=== PATIENT | male | born 1980 | race African-American/Black ===

== ENCOUNTER 2017-10-15 14:55 | Emergency (ER) | payer OTHER ==
--- NOTE | 2017-10-15 15:37 | ER Document Report ---
ED Medical Screen (RME) - General Chief Complaint: Pain Stated Complaint: ABDOMINAL,NECK,BACK,SHOULDER PAIN Time Seen by Provider: 10/15/17 15:31 TRAVEL OUTSIDE OF THE [place] IN LAST 30 DAYS: No - HPI Notes: 10/15/17 15:35 Patient coming in for evaluation due to ongoing pain after being a fall apparently down 2 flights of stairs was in [facility] discharged a week ago patient states pain continues and medication he is currently on is not taking care of his pain. Patient states he has contacted his follow-up physicians and has an appointment later on next week but states that he was having hematuria this has reoccurred and also has pain in the left hand now which was not evaluated while he was at [facility]. - Related Data Allergies/Adverse Reactions: haloperidol [From Haldol] Allergy (Verified 10/15/17 14:56) haloperidol lactate [From Haldol] Allergy (Verified 10/15/17 14:56) ibuprofen Allergy (Verified 10/15/17 14:56) Past Medical History - Past Medical History Cardiac Medical History: Reports: Hx Hypertension Endocrine Medical History: Reports: Hx Hypothyroidism GI Medical History: Denies: Hx Crohn's Disease - denies, Hx Diverticulitis - denies, Hx Gastroesophageal Reflux Disease - denies, Hx Ulcer - denies Musculoskeltal Medical History: Reports Hx Arthritis, Reports Hx Musculoskeletal Deformity, Reports Hx Musculoskeletal Trauma Psychiatric Medical History: Reports: Hx Schizophrenia Traumatic Medical History: Reports: Hx Fractures - shoulder Past Surgical History: Reports: Hx Orthopedic Surgery - shoulder - Immunizations Immunizations up to date: Yes Hx Diphtheria, Pertussis, Tetanus Vaccination: Yes Review of Systems - Review of Systems Constitutional: Other - Diffuse pain Physical Exam - Vital signs Vitals: Temp Pulse Resp BP Pulse Ox 99.8 F 125 H 20 168/103 H 96 10/15/17 15:05 10/15/17 15:05 10/15/17 15:05 10/15/17 15:05 10/15/17 15:05 - General General appearance: Appears well In distress: None Notes: Patient in no obvious distress Course - Re-evaluation Re-evalutation: 10/15/17 15:36 Patient with a cast on the left hand neck brace knee immobilizer however is unable to give specific injuries requested [facility] records be obtained requesting adjustment of pain medications explained to patient this will have to come from his follow-up physician 10/15/17 15:37 - Vital Signs Vital signs: Temp Pulse Resp BP Pulse Ox 99.8 F 125 H 20 168/103 H 96 10/15/17 15:05 10/15/17 15:05 10/15/17 15:05 10/15/17 15:05 10/15/17 15:05
[2017-10-15 16:16] LABS: ABSOLUTE BASOPHILS # (AUTO) 0.1 10^3/uL (0.0-0.2); ABSOLUTE LYMPHOCYTES (AUTO) 1.6 10^3/uL (0.5-4.7); BASOPHILS % (AUTO) 0.8 % (0-2); HEMATOCRIT 36.1 % (37.9-51.0); HEMOGLOBIN 12.2 g/dL (13.5-17.0); MEAN CORPUSCULAR HEMOGLOBIN 28.8 pg (27.0-33.4); MEAN CORPUSCULAR HGB CONC 33.9 g/dL (32.0-36.0); MEAN CORPUSCULAR VOLUME 85 fl (80-97); PLATELET COUNT 464 10^3/uL (150-450); RED BLOOD COUNT 4.26 10^6/uL (4.35-5.55); RED CELL DISTRIBUTION WIDTH 13.6 % (11.5-14.0); SEGMENTED NEUTROPHILS % (AUTO) 80.2 % (42-78); TOTAL CELLS COUNTED % (AUTO) 100 %; WHITE BLOOD COUNT 13.7 10^3/uL (4.0-10.5)
--- NOTE | 2017-10-15 16:19 | RADIOLOGY REPORT (SQ) ---
EXAM DESCRIPTION: HAND RIGHT 3 VIEWS COMPLETED DATE/TIME: 10/15/2017 3:58 pm REASON FOR STUDY: pain COMPARISON: None. EXAM PARAMETERS: NUMBER OF VIEWS: Three views. TECHNIQUE: AP, lateral and oblique radiographic images acquired of the right hand. LIMITATIONS: None. FINDINGS: MINERALIZATION: Normal. BONES: No acute fracture or dislocation. No worrisome bone lesions. JOINTS: No effusions. SOFT TISSUES: No soft tissue swelling. No foreign body. OTHER: No other significant finding. IMPRESSION: NEGATIVE STUDY OF THE RIGHT HAND. NO RADIOGRAPHIC EVIDENCE OF ACUTE INJURY. TECHNICAL DOCUMENTATION: JOB ID: [id number] [employer]- All Rights Reserved Reading location - IP/workstation name: [email or web address]
[2017-10-15] MEDS ORDERED: HYDROCODONE/ACETAMINOPHEN 5-325 MG TABLET PO ONE (16:28)
[2017-10-15 16:38] LABS: ANION GAP 13 (5-19); BLOOD UREA NITROGEN 29 mg/dL (7-20); CALCIUM 9.7 mg/dL (8.4-10.2); CARBON DIOXIDE 30 mmol/L (22-30); CHLORIDE 92 mmol/L (98-107); GLUCOSE 145 mg/dL (75-110); SODIUM 134.9 mmol/L (137-145)
[2017-10-15 16:45] LABS: APPEARANCE,URINE CLEAR; BILIRUBIN,URINE NEGATIVE (NEGATIVE); COLOR,URINE YELLOW; GLUCOSE, URINE NEGATIVE (NEGATIVE); KETONES,URINE NEGATIVE (NEGATIVE); LEUKOCYTE ESTERASE,URINE NEGATIVE (NEGATIVE); NITRITE,URINE NEGATIVE (NEGATIVE); PROTEIN,URINE NEGATIVE (NEGATIVE); URINE SPECIFIC GRAVITY 1.024; UROBILINOGEN,URINE NEGATIVE mg/dL (<2.0)
--- NOTE | 2017-10-15 17:10 | ER Document Report ---
ED General Pain - General Chief Complaint: Pain Stated Complaint: ABDOMINAL,NECK,BACK,SHOULDER PAIN Time Seen by Provider: 10/15/17 15:31 Notes: This is a 36-year-old male that fell from a scaffolding as a trauma patient. Was seen at [facility] 1 week ago. Had fracture of his left wrist, grade 4 splenic lack, liver lack as well as kidney lack. Was subsequently operated on for his wrist and was discharged on Saturday. Here complaining of pain. Not followed up with Ortho. Has not followed up with surgery. Requesting pain medication. States that he has pain in his right wrist and right knee and that he does not think anything was done to evaluate those. Requesting x-rays. Requesting pain management. TRAVEL OUTSIDE OF THE [place] IN LAST 30 DAYS: No - HPI Onset: Last week - Related Data Allergies/Adverse Reactions: haloperidol [From Haldol] Allergy (Verified 10/15/17 14:56) haloperidol lactate [From Haldol] Allergy (Verified 10/15/17 14:56) ibuprofen Allergy (Verified 10/15/17 14:56) Past Medical History - General Information source: Patient - Social History Smoking Status: Never Smoker Chew tobacco use (# tins/day): No Frequency of alcohol use: None Drug Abuse: None Lives with: Family Family History: Arthritis, DM - mother, Hyperlipidemia, Hypertension, Malignancy - father with colon cancer, Thyroid Disfunction Patient has suicidal ideation: No Patient has homicidal ideation: No - Past Medical History Cardiac Medical History: Reports: Hx Hypertension Endocrine Medical History: Reports: Hx Hypothyroidism Renal/ Medical History: Denies: Hx Peritoneal Dialysis GI Medical History: Denies: Hx Crohn's Disease - denies, Hx Diverticulitis - denies, Hx Gastroesophageal Reflux Disease - denies, Hx Ulcer - denies Musculoskeltal Medical History: Reports Hx Arthritis, Reports Hx Musculoskeletal Deformity, Reports Hx Musculoskeletal Trauma Psychiatric Medical History: Reports: Hx Schizophrenia Traumatic Medical History: Reports: Hx Fractures - shoulder Past Surgical History: Reports: Hx Orthopedic Surgery - shoulder - Immunizations Immunizations up to date: Yes Hx Diphtheria, Pertussis, Tetanus Vaccination: Yes Review of Systems - Review of Systems Constitutional: No symptoms reported EENT: No symptoms reported Cardiovascular: No symptoms reported Respiratory: No symptoms reported Gastrointestinal: No symptoms reported Genitourinary: No symptoms reported Male Genitourinary: No symptoms reported Musculoskeletal: See HPI, Joint pain, Muscle pain, Other - Knee pain, wrist pain Skin: No symptoms reported Hematologic/Lymphatic: No symptoms reported Neurological/Psychological: No symptoms reported Physical Exam - Vital signs Vitals: Temp Pulse Resp BP Pulse Ox 99.8 F 125 H 20 168/103 H 96 10/15/17 15:05 10/15/17 15:05 10/15/17 15:05 10/15/17 15:05 10/15/17 15:05 Interpretation: Normal - General General appearance: Appears well, Alert - HEENT Head: Normocephalic, Atraumatic Eyes: Normal Pupils: PERRL - Respiratory Respiratory status: No respiratory distress Chest status: Nontender Breath sounds: Normal Chest palpation: Normal - Cardiovascular Rhythm: Regular Heart sounds: Normal auscultation Murmur: No - Abdominal Inspection: Normal Distension: No distension Bowel sounds: Normal Tenderness: Nontender Organomegaly: No organomegaly - Back Back: Normal, Nontender - Extremities General upper extremity: Other - Patient has dressing and application to the left upper extremity at the wrist. Patient is neurovascularly intact. Good capillary refill to the fingers of the left hand. Patient has some mild tenderness to palpation of the carpal bones on the right hand. No significant deformity or palpation of the right wrist. General lower extremity: Normal inspection, Nontender, Normal color, Normal ROM , Normal temperature, Normal weight bearing. No: Aly's sign Shoulder: Normal Hip: Normal Knee: Tender, Other - Tenderness palpation right knee. - Neurological Neuro grossly intact: Yes Cognition: Normal Orientation: AAOx4 Glenna Coma Scale Eye Opening: Spontaneous Glenna Coma Scale Verbal: Oriented Glenna Coma Scale Motor: Obeys Commands [place] Coma Scale Total: 15 Speech: Normal Motor strength normal: LUE, RUE, LLE, RLE Sensory: Normal - Psychological Associated symptoms: Normal affect, Normal mood - Skin Skin Temperature: Warm Skin Moisture: Dry Skin Color: Normal Course - Re-evaluation Re-evalutation: 10/15/17 17:44 X-rays are unremarkable. Spoke with the trauma surgeon at [facility]. I believe patient is on adequate pain medication at this time. No acute issues. Patient definitely has multiple trauma related injuries including a grade 4 liver laceration, right renal laceration, scaphoid fracture perilunate dorsal dislocation and dorsal dislocation of the left index finger. Nothing appears acute at this time. Patient requesting pain management. Patient has oxycodone, Robaxin, gabapentin. I feel that patient is stable to be seen in outpatient clinic. Spoke with the trauma surgeon as well and they have advised to have him follow-up with the trauma clinic tomorrow at [phone] 10/15/17 18:51 Hand X-Ray 10/15/17 15:35 IMPRESSION: NEGATIVE STUDY OF THE RIGHT HAND. NO RADIOGRAPHIC EVIDENCE OF ACUTE INJURY. Knee X-Ray 10/15/17 17:05 IMPRESSION: NEGATIVE STUDY OF THE RIGHT KNEE. NO RADIOGRAPHIC EVIDENCE OF ACUTE INJURY. - Vital Signs Vital signs: Temp Pulse Resp BP Pulse Ox 99.8 F 125 H 20 168/103 H 96 10/15/17 15:05 10/15/17 15:05 10/15/17 15:05 10/15/17 15:05 10/15/17 15:05 - Laboratory Result Diagrams: 10/15/17 16:00 10/15/17 16:00 Laboratory results interpreted by me: 10/15/17 10/15/17 10/15/17 16:00 16:00 16:10 WBC 13.7 H RBC 4.26 L Hgb 12.2 L Hct 36.1 L Plt Count 464 H Seg Neutrophils % 80.2 H Lymphocytes % 12.0 L Absolute Neutrophils 11.0 H Sodium 134.9 L Chloride 92 L BUN 29 H Glucose 145 H Urine Ascorbic Acid 40 H Discharge - Discharge Clinical Impression: Postoperative pain of extremity Condition: Good Disposition: HOME, SELF-CARE Instructions: Pain Management Additional Instructions: Please go to the trauma clinic at [facility] surgery clinic at [address] tomorrow morning at 9 AM. Their phone number is [phone]. They will be better able to manage your pain after your trauma. Referrals: [facility] [Provider Group] - Follow up tomorrow
[2017-10-15] MEDS ORDERED: MORPHINE SULFATE 10 MG/ML INJ IM PRN (17:48)
--- NOTE | 2017-10-15 17:50 | RADIOLOGY REPORT (SQ) ---
EXAM DESCRIPTION: KNEE RIGHT 2 VIEWS COMPLETED DATE/TIME: 10/15/2017 5:18 pm REASON FOR STUDY: pain COMPARISON: None. NUMBER OF VIEWS: Two views. TECHNIQUE: AP and lateral radiographic images acquired of the right knee. LIMITATIONS: None. FINDINGS: MINERALIZATION: Normal. BONES: No acute fracture or dislocation. No worrisome bone lesions. JOINT: No effusion. SOFT TISSUES: No soft tissue swelling. No radio-opaque foreign body. OTHER: Minimal patellar spurring is identified. IMPRESSION: NEGATIVE STUDY OF THE RIGHT KNEE. NO RADIOGRAPHIC EVIDENCE OF ACUTE INJURY. TECHNICAL DOCUMENTATION: JOB ID: [id number] [email or web address]- All Rights Reserved Reading location - IP/workstation name: [email or web address]
[2017-10-15 19:08] VITALS: BP 148/89
== END 2017-10-15 18:20 | disposition home or self-care (01) ==
LOC: ER 14:55
DX: G89.18 Other acute postprocedural pain (principal); M25.531 Pain in right wrist; M25.561 Pain in right knee; I10 Essential (primary) hypertension; E03.9 Hypothyroidism, unspecified; Z88.6 Allergy status to analgesic agent
CPT/HCPCS: 99284; 96372; 36415; 85025; 80048; 81001; 73130; 73560; J2270

== ENCOUNTER 2017-12-13 13:56 | Emergency (ER) | payer SELFPAY ==
[2017-12-13 14:06] VITALS: BP 148/95
[2017-12-13] MEDS ORDERED: ACETAMINOPHEN 325 MG TABLET PO ONE (15:39)
--- NOTE | 2017-12-13 15:47 | ER Document Report ---
ED Hand/Wrist Injury - General Chief Complaint: Wrist Injury Stated Complaint: HAND PAIN Time Seen by Provider: 12/13/17 15:38 Mode of Arrival: Ambulatory Information source: Patient Notes: 37-year-old male presents to ED for complaint to his left hand that he states he broke and had surgery on on October 07 at [facility]. TRAVEL OUTSIDE OF THE [place] IN LAST 30 DAYS: No - HPI Injury to: Hand - Left, Wrist - Left Onset: Last week Where: Work Timing: Still present Quality of pain: Sharp, Throbbing Context: Other - Pain to surgical site - Related Data Allergies/Adverse Reactions: haloperidol [From Haldol] Allergy (Verified 10/15/17 14:56) haloperidol lactate [From Haldol] Allergy (Verified 10/15/17 14:56) ibuprofen Allergy (Verified 10/15/17 14:56) Past Medical History - General Information source: Patient - Social History Smoking Status: Former Smoker Chew tobacco use (# tins/day): No Frequency of alcohol use: None Drug Abuse: None Lives with: Family Family History: Arthritis, DM - mother, Hyperlipidemia, Hypertension, Malignancy - father with colon cancer, Thyroid Disfunction Patient has suicidal ideation: No Patient has homicidal ideation: No - Past Medical History Cardiac Medical History: Reports: Hx Hypertension Pulmonary Medical History: Reports: None Neurological Medical History: Reports: None Endocrine Medical History: Reports: Hx Hypothyroidism Renal/ Medical History: Reports: None Malignancy Medical History: Reports None GI Medical History: Reports: Hx Ulcer Musculoskeletal Medical History: Reports Hx Arthritis, Reports Hx Musculoskeletal Deformity, Reports Hx Musculoskeletal Trauma Psychiatric Medical History: Reports: Hx Schizophrenia Traumatic Medical History: Reports: Hx Fractures - shoulder pain Past Surgical History: Reports: Hx Orthopedic Surgery - shoulder - Immunizations Immunizations up to date: Yes Hx Diphtheria, Pertussis, Tetanus Vaccination: Yes Review of Systems - Review of Systems Constitutional: No symptoms reported EENT: No symptoms reported Cardiovascular: No symptoms reported Respiratory: No symptoms reported Gastrointestinal: No symptoms reported Genitourinary: No symptoms reported Male Genitourinary: No symptoms reported Musculoskeletal: Other - Left hand and wrist pain with a cast on it Skin: No symptoms reported Hematologic/Lymphatic: No symptoms reported Neurological/Psychological: No symptoms reported Physical Exam - Vital signs Vitals: Temp Pulse Resp BP Pulse Ox 98.9 F 76 18 148/95 H 99 12/13/17 14:05 12/13/17 14:05 12/13/17 14:05 12/13/17 14:05 12/13/17 14:05 Interpretation: Normal - General General appearance: Appears well, Alert - HEENT Head: Normocephalic, Atraumatic Eyes: Normal Pupils: PERRL - Respiratory Respiratory status: No respiratory distress Chest status: Nontender Breath sounds: Normal Chest palpation: Normal - Cardiovascular Rhythm: Regular Heart sounds: Normal auscultation Murmur: No - Abdominal Inspection: Normal Distension: No distension Bowel sounds: Normal Tenderness: Nontender Organomegaly: No organomegaly - Back Back: Normal, Nontender - Extremities General upper extremity: Normal color, Normal temperature General lower extremity: Normal inspection, Nontender, Normal color, Normal ROM , Normal temperature, Normal weight bearing. No: Aly's sign Wrist: Other - Cast intact to left hand and wrist. He states he had surgery on this hand and wrist last week at [place] and he thinks this pins are out of place any has excruciating pain and needs new surgery on his hand and wrist - Neurological Neuro grossly intact: Yes Cognition: Normal Orientation: AAOx4 Glenna Coma Scale Eye Opening: Spontaneous Fowler Coma Scale Verbal: Oriented Glenna Coma Scale Motor: Obeys Commands Fowler Coma Scale Total: 15 Speech: Normal Motor strength normal: LUE, RUE, LLE, RLE Sensory: Normal - Psychological Associated symptoms: Normal affect, Normal mood - Skin Skin Temperature: Warm Skin Moisture: Dry Skin Color: Normal Course - Re-evaluation Re-evalutation: 12/13/17 21:16 X-rays were discussed with patient. I was typing up his discharge instructions when the nurse came and told me that the patient had decided to get up and leave. I finished typing the discharge papers and tried to catch him but was unable to catch him to give him his discharge papers. - Vital Signs Vital signs: Temp Pulse Resp BP Pulse Ox 98.9 F 76 18 148/95 H 99 12/13/17 14:05 12/13/17 14:05 12/13/17 14:05 12/13/17 14:05 12/13/17 14:05 - Diagnostic Test Radiology reviewed: Image reviewed, Reports reviewed Discharge - Discharge Clinical Impression: left hand and wrist pain Condition: Stable Disposition: HOME, SELF-CARE Additional Instructions: You was seen for pain to your left hand and wrist. There is no acute changes to your wrist and hand the surgery does not show any problems with your pins and screws does not show any new fractures. I have given you a copy of the written reports if you are willing to wait I will get you a CD of the reports to take to [facility]. ICE & ELEVATION: Apply ice packs frequently against the painful area. Many different schedules are recommended, such as "20 minutes on, 20 minutes off" or "one hour ice, two hours rest." If you need to work, you may need to go longer between ice treatments. You should plan to have the area ice packed AT LEAST one- fourth of the time. The ice should be applied over the wrap, tape, or splint, or over a layer of cloth -- not directly against the skin. Some ice bags have a built-in cloth and can be put directly on the skin. Your injured part should be elevated as much as possible over the next 48 hours. Try to keep the injury above the level of the heart. Avoid use of the injured area. Elevation and rest will decrease the swelling. USE OF [id number]-KTG-YIFFLEB IBUPROFEN: Ibuprofen (Advil, Nuprin, Medipren, Motrin IB) is a medication for fever and pain control. In addition, it has anti- inflammatory effects which may be beneficial, especially in the treatment of injuries. It's best to take ibuprofen with food. Persons with ulcer disease or allergy to aspirin should notify their physician of this before taking ibuprofen. Ibuprofen can be given every four to six hours, for a total of four doses daily. Age Pain or fever dose Antiinflammatory dose 6-8 yr 200 mg (1 tab) 200 mg (1 tab) 9-11 yr 200 mg (1 tab) 200-400 mg (1-2 tab) 11-14 yr 200-400 mg (1-2 tab) 400 mg (2 tab) 15-adult 400 mg (2 tab) 600 mg (3 tab) FOLLOW-UP CARE: If you have been referred to a physician for follow-up care, call the physician s office for an appointment as you were instructed or within the next two days. If you experience worsening or a significant change in your symptoms, notify the physician immediately or return to the Emergency Department at any time for re-evaluation. Forms: Elevated Blood Pressure
--- NOTE | 2017-12-13 16:12 | RADIOLOGY REPORT (SQ) ---
EXAM DESCRIPTION: HAND LEFT 3 VIEWS COMPLETED DATE/TIME: 12/13/2017 4:01 pm REASON FOR STUDY: surgery last week [place] COMPARISON: None. EXAM PARAMETERS: NUMBER OF VIEWS: Three views. TECHNIQUE: AP, lateral and oblique radiographic images acquired of the left hand. LIMITATIONS: None. FINDINGS: MINERALIZATION: Normal. BONES: No abnormality in the hand. There is a cannulated screw in the scaphoid. 4 pins are present in the wrist. JOINTS: No effusions. SOFT TISSUES: No soft tissue swelling. No foreign body. OTHER: No other significant finding. IMPRESSION: Surgical changes. No acute osseous abnormality. TECHNICAL DOCUMENTATION: JOB ID: [id number] [employer]- All Rights Reserved Reading location - IP/workstation name: [email or web address]
--- NOTE | 2017-12-13 16:13 | RADIOLOGY REPORT (SQ) ---
EXAM DESCRIPTION: WRIST LEFT 3 VIEWS COMPLETED DATE/TIME: 12/13/2017 4:01 pm REASON FOR STUDY: surgery last week [place] COMPARISON: None. NUMBER OF VIEWS: Three views. TECHNIQUE: AP, lateral, and oblique radiographic images acquired of the left wrist. LIMITATIONS: None. FINDINGS: MINERALIZATION: Normal. BONES: There is a cannulated screw in the scaphoid. For pins are present in the wrist. The alignmen t appears to be satisfactory. No acute findings are seen. SOFT TISSUES: No soft tissue swelling. No foreign body. OTHER: No other significant finding. IMPRESSION: Surgical changes. TECHNICAL DOCUMENTATION: JOB ID: [id number] [employer]- All Rights Reserved Reading location - IP/workstation name: [email or web address]
== END 2017-12-13 16:53 | disposition home or self-care (01) ==
LOC: ER 13:56
DX: M79.642 Pain in left hand (principal); M25.572 Pain in left ankle and joints of left foot; I10 Essential (primary) hypertension; Z98.890 Other specified postprocedural states; Z88.8 Allergy status to other drugs, medicaments and biological substances; Z88.6 Allergy status to analgesic agent
CPT/HCPCS: 99283

== ENCOUNTER 2019-11-13 18:47 | Emergency (ER) | payer SELFPAY ==
--- NOTE | 2019-11-13 20:01 | ER Document Report ---
ED Medical Screen (RME) - General Chief Complaint: Abdominal Pain Stated Complaint: ABDOMINAL PAIN Time Seen by Provider: 11/13/19 19:55 Mode of Arrival: Ambulatory Information source: Patient Notes: HPI; 38-year-old male presents to the emergency room complaining of worsening constant abdominal pain that has been chronic for the past 2 years but has gotten worse over the past 2 weeks. He denies any nausea, vomiting, no fevers, no urinary symptoms. Tried taking Pepto-Bismol without relief. PE: Alert and oriented x3. No acute distress noted. Lungs: Clear to auscultation without rales, rhonchi, wheezes. Heart: Regular rate rhythm without murmurs, rubs, gallops. Abdomen is soft, nontender, nondistended, positive bowel sounds x4, no masses, no organomegaly, no splenomegaly. No CVA tenderness noted bilaterally. I have greeted and performed a rapid initial assessment of this patient. A comprehensive ED assessment and evaluation of the patient, analysis of test results and completion of the medical decision making process will be conducted by additional ED providers. I have specifically instructed the patient or family members with the patient to immediately return to any nursing staff should anything change in the patient's condition or with their chief complaint. TRAVEL OUTSIDE OF THE [place] IN LAST 30 DAYS: No - Related Data Allergies/Adverse Reactions: haloperidol [From Haldol] Allergy (Verified 10/15/17 14:56) haloperidol lactate [From Haldol] Allergy (Verified 10/15/17 14:56) ibuprofen Allergy (Verified 10/15/17 14:56) Past Medical History - Past Medical History Cardiac Medical History: Reports: Hx Hypertension Endocrine Medical History: Reports: Hx Hypothyroidism Renal/ Medical History: Denies: Hx Peritoneal Dialysis GI Medical History: Reports: Hx Ulcer. Denies: Hx Crohn's Disease - denies, Hx Diverticulitis - denies, Hx Gastroesophageal Reflux Disease - denies Musculoskeltal Medical History: Reports Hx Arthritis, Reports Hx Musculoskeletal Deformity, Reports Hx Musculoskeletal Trauma Psychiatric Medical History: Reports: Hx Schizophrenia Traumatic Medical History: Reports: Hx Fractures - shoulder pain Past Surgical History: Reports: Hx Orthopedic Surgery - shoulder - Immunizations Immunizations up to date: Yes Hx Diphtheria, Pertussis, Tetanus Vaccination: Yes Physical Exam - Vital signs Vitals: Temp Pulse Resp BP Pulse Ox 99.4 F 76 16 145/82 H 97 11/13/19 19:36 11/13/19 19:36 11/13/19 19:36 11/13/19 19:36 11/13/19 19:36 Course - Vital Signs Vital signs: Temp Pulse Resp BP Pulse Ox 99.4 F 76 16 145/82 H 97 11/13/19 19:36 11/13/19 19:36 11/13/19 19:36 11/13/19 19:36 11/13/19 19:36
[2019-11-13 21:14] LABS: ABSOLUTE MONOCYTES (AUTO) 0.6 10^3/uL (0.1-1.4); EOSINOPHILS % (AUTO) 0.2 % (0-6); HEMOGLOBIN 15.2 g/dL (13.5-17.0); RED CELL DISTRIBUTION WIDTH 14.3 % (11.5-14.0); TOTAL CELLS COUNTED % (AUTO) 100 %
[2019-11-13 21:18] LABS: ABSOLUTE NEUT (AUTO) 1.6 10^3/uL (1.7-8.2); BASOPHILS % (AUTO) 1.2 % (0-2); HEMATOCRIT 44.5 % (37.9-51.0); LYMPHOCYTES % (AUTO) 32.2 % (13-45); MEAN CORPUSCULAR HEMOGLOBIN 30.1 pg (27.0-33.4); MEAN CORPUSCULAR HGB CONC 34.3 g/dL (32.0-36.0); MEAN CORPUSCULAR VOLUME 88 fl (80-97); MONOCYTES % (AUTO) 18.4 % (3-13); PLATELET COUNT 154 10^3/uL (150-450); RED BLOOD COUNT 5.06 10^6/uL (4.35-5.55); WHITE BLOOD COUNT 3.3 10^3/uL (4.0-10.5)
[2019-11-13 21:27] LABS: ALBUMIN 4.2 g/dL (3.5-5.0); ALKALINE PHOSPHATASE 56 U/L (38-126); ANION GAP 6 (5-19); ASPARTATE AMINO TRANSFERASE 26 U/L (17-59); BILIRUBIN,TOTAL 0.4 mg/dL (0.2-1.3); BLOOD UREA NITROGEN 14 mg/dL (7-20); CALCIUM 8.8 mg/dL (8.4-10.2); CARBON DIOXIDE 28 mmol/L (22-30); CHLORIDE 98 mmol/L (98-107); GLUCOSE 95 mg/dL (75-110); POTASSIUM 4.2 mmol/L (3.6-5.0); TOTAL PROTEIN 7.3 g/dL (6.3-8.2)
--- NOTE | 2019-11-13 22:46 | ER Document Report ---
ED General - General Chief Complaint: Abdominal Pain Stated Complaint: ABDOMINAL PAIN Time Seen by Provider: 11/13/19 19:55 Mode of Arrival: Ambulatory Information source: Patient Notes: Patient is a 38-year-old male presenting to the emergency department chief complaint of abdominal pain. Patient states is been ongoing for a couple of years but worse the past 2 weeks. Patient reports decreased oral intake because of the discomfort. Patient has tried drinking clear fluids and also tried Pepto-Bismol without resolution and thus is here for evaluation and treatment. Patient denies nausea or vomiting had a remote history of diarrhea. Patient denies sick contacts bad food exposure no overexertion no trauma. TRAVEL OUTSIDE OF THE [place] IN LAST 30 DAYS: No - HPI Onset: Other Onset/Duration: Persistent, Waxing and waning Quality of pain: Throbbing Severity: Mild Pain Level: 2 Associated symptoms: Diarrhea. denies: Productive cough, Nausea, Vomiting, Shortness of breath Exacerbated by: Denies Relieved by: Denies Similar symptoms previously: Yes Recently seen / treated by doctor: No - Related Data Allergies/Adverse Reactions: haloperidol [From Haldol] Allergy (Verified 10/15/17 14:56) haloperidol lactate [From Haldol] Allergy (Verified 10/15/17 14:56) ibuprofen Allergy (Verified 10/15/17 14:56) Home Medications: pepto bismal Past Medical History - General Information source: Patient - Social History Smoking Status: Current Every Day Smoker Cigarette use (# per day): Yes Chew tobacco use (# tins/day): No Smoking Education Provided: Yes Frequency of alcohol use: None Drug Abuse: Marijuana Family History: Arthritis, DM - mother, Hyperlipidemia, Hypertension, Malignancy - father with colon cancer, Thyroid Disfunction Patient has suicidal ideation: No Patient has homicidal ideation: No - Past Medical History Cardiac Medical History: Reports: Hx Hypertension Endocrine Medical History: Reports: Hx Hypothyroidism Renal/ Medical History: Denies: Hx Peritoneal Dialysis GI Medical History: Reports: Hx Ulcer. Denies: Hx Crohn's Disease - denies, Hx Diverticulitis - denies, Hx Gastroesophageal Reflux Disease - denies Musculoskeletal Medical History: Reports Hx Arthritis, Reports Hx Musculoskeletal Deformity, Reports Hx Musculoskeletal Trauma Psychiatric Medical History: Reports: Hx Schizophrenia Traumatic Medical History: Reports: Hx Fractures - shoulder pain Past Surgical History: Reports: Hx Orthopedic Surgery - shoulder - Immunizations Immunizations up to date: Yes Hx Diphtheria, Pertussis, Tetanus Vaccination: Yes Review of Systems - Review of Systems Constitutional: No symptoms reported EENT: No symptoms reported Cardiovascular: No symptoms reported Respiratory: No symptoms reported Gastrointestinal: See HPI Genitourinary: No symptoms reported Male Genitourinary: No symptoms reported Musculoskeletal: No symptoms reported Skin: No symptoms reported Hematologic/Lymphatic: No symptoms reported Neurological/Psychological: No symptoms reported Physical Exam - Vital signs Vitals: Temp Pulse Resp BP Pulse Ox 99.4 F 76 16 145/82 H 97 11/13/19 19:36 11/13/19 19:36 11/13/19 19:36 11/13/19 19:36 11/13/19 19:36 - Notes Notes: PHYSICAL EXAMINATION: GENERAL: Well-appearing, well-nourished and in no acute distress. HEAD: Atraumatic, normocephalic. EYES: Pupils equal round and reactive to light, extraocular movements intact, sclera anicteric, conjunctiva are normal. ENT: nares patent, oropharynx clear without exudates. Moist mucous membranes. NECK: Normal range of motion, supple without lymphadenopathy, no appreciable JVD LUNGS: Lungs clear to auscultation bilaterally and equal. No wheezes rales or rhonchi. HEART: Regular rate and rhythm without murmurs ABDOMEN: Soft, tender to the left middle quadrant of the abdomen there is guarding but no rebound no McBurney point tenderness no Cramer sign no palpable masses.. EXTREMITIES: Active full range of motion, no pitting or edema. No cyanosis. 2+ pulses x4 NEUROLOGICAL: No focal neurological deficits. Moves all extremities spontaneously and on command. SKIN: Warm, Dry, and intact. Normal turgor, no rashes or lesions noted. Course - Re-evaluation Re-evalutation: 11/14/19 01:19 Patient has been reevaluated several times while in the emergency department. Patient has remained stable without decompensation. After review of applicable laboratory and/or radiologic results, there are no signs of acute abdomen to include: acute appendicitis, pancreatitis, cholelithiasis or cholecystitis, bowel obstruction or ileus, there are no signs of Aortic Dissection, diverticulitis or diverticulosis, Kidney abnormalities to include urinary tract infection, renal failure or kidney stones or any other acute life-threatening process. At this time I feel the patient is stable for discharge. I have reviewed the laboratory and/or radiologic results with the patient answered all questions. Patient is agreeable with discharge at this time. Patient is recommended to follow-up with primary care provider in the next several days for follow-up. Patient should return to the emergency department for worsening symptoms to include worsening pain, bloody vomitus, bloody diarrhea, inability to tolerate fluids or fever greater than 101 orally. - Vital Signs Vital signs: Temp Pulse Resp BP Pulse Ox 99.4 F 76 16 145/82 H 97 11/13/19 19:36 11/13/19 19:36 11/13/19 19:36 11/13/19 19:36 11/13/19 19:36 - Laboratory Result Diagrams: 11/13/19 20:48 11/13/19 20:48 Laboratory results interpreted by me: 11/13/19 11/13/19 11/13/19 20:48 20:48 20:55 WBC 3.3 L RDW 14.3 H [place] % (Auto) 18.4 H Absolute Neuts (auto) 1.6 L Sodium 131.9 L Urine Urobilinogen 2.0 H - Diagnostic Test Radiology reviewed: Reports reviewed Discharge - Discharge Clinical Impression: Abdominal pain Qualifiers: Abdominal location: left lower quadrant Qualified Code(s): R10.32 - Left lower quadrant pain Condition: Stable Disposition: HOME, SELF-CARE Instructions: Abdominal Pain ([facility])
[2019-11-13] MEDS ORDERED: NORMAL SALINE 1000 ML 1,000 ML IV ONE (22:55)
[2019-11-13 23:55] LABS: APPEARANCE,URINE CLEAR; BILIRUBIN,URINE NEGATIVE (NEGATIVE); COLOR,URINE YELLOW; GLUCOSE, URINE NEGATIVE (NEGATIVE); KETONES,URINE NEGATIVE (NEGATIVE); LEUKOCYTE ESTERASE,URINE NEGATIVE (NEGATIVE); NITRITE,URINE NEGATIVE (NEGATIVE); PROTEIN,URINE NEGATIVE (NEGATIVE); URINE SPECIFIC GRAVITY 1.026
--- NOTE | 2019-11-14 01:03 | RADIOLOGY REPORT (SQ) ---
EXAM DESCRIPTION: CT ABDOMEN PELVIS WITH IV CONTRAST COMPLETED DATE/TME: 11/13/2019 22:54 CLINICAL HISTORY: Left abd pain COMPARISON: None Available. TECHNIQUE: CT of the abdomen and pelvis performed following IV administration of 95 mL of Omnipaque 350. FINDINGS: Lung Bases: The visualized lung bases are clear. Bones: No destructive bone lesions identified. Abdomen: Liver: The liver has normal size and density. No intrahepatic biliary dilatation. Gallbladder: No calcified gallstones. Spleen, Pancreas, and Adrenal Glands: The spleen, pancreas, and adrenal glands are unremarkable. Kidneys: No hydronephrosis or obstructing calculus. Vasculature: Aortoiliac atherosclerosis. IVC is unremarkable. The portal vein is patent. The proximal visceral and renal arteries are patent. Stomach: The stomach and duodenum have normal course. Other: No free intraperitoneal air. No free fluid or lymphadenopathy. Pelvis: Bladder: Urinary bladder is unremarkable. Bowel: No dilated loops of large or small bowel. Appendix: Normal appendix. Pelvis: Prostate is not enlarged. IMPRESSION: 1. No acute inflammatory or obstructive process identified. This exam was performed according to our departmental dose-optimization program, which includes automated exposure control, adjustment of the mA and/or kV according to patient size and/or use of iterative reconstruction technique.
[2019-11-14 01:41] VITALS: BP 147/89
== END 2019-11-14 01:41 | disposition home or self-care (01) ==
LOC: ER 18:47
DX: R10.9 Unspecified abdominal pain (principal); R19.7 Diarrhea, unspecified
CPT/HCPCS: 99284; 96360; 36415; 83690; 85025; 80053; 81001; 74177; J7030

== ENCOUNTER 2020-01-02 11:30 | Emergency (ER) | payer BC ==
--- NOTE | 2020-01-02 11:50 | ER Document Report ---
ED Medical Screen (RME) - General Stated Complaint: ABDOMINAL PAIN Time Seen by Provider: 01/02/20 11:48 Notes: HPI: 39-year-old male presenting for epigastric pain has been an ongoing issue over the last year worse over the last month. States he was here a month ago f or same complaint had imaging and lab work done never followed up now with more constant pain over the last several days in the epigastric region no chest pain shortness of breath eating and drinking did not specifically change the character of the discomfort PHYSICAL EXAMINATION: Limited exam by positioning in triage but patient with mild epigastric tenderness with no lower abdominal tenderness on palpation I have greeted and performed a rapid initial assessment of this patient. A comprehensive ED assessment and evaluation of the patient, analysis of test results and completion of medical decision making process will be conducted by an additional ED providers. TRAVEL OUTSIDE OF THE [place] IN LAST 30 DAYS: No - Related Data Allergies/Adverse Reactions: haloperidol [From Haldol] Allergy (Verified 10/15/17 14:56) haloperidol lactate [From Haldol] Allergy (Verified 10/15/17 14:56) ibuprofen Allergy (Verified 10/15/17 14:56) Past Medical History - Past Medical History Cardiac Medical History: Reports: Hx Hypertension Endocrine Medical History: Reports: Hx Hypothyroidism Renal/ Medical History: Denies: Hx Peritoneal Dialysis GI Medical History: Reports: Hx Ulcer. Denies: Hx Crohn's Disease - denies, Hx Diverticulitis - denies, Hx Gastroesophageal Reflux Disease - denies Musculoskeltal Medical History: Reports Hx Arthritis, Reports Hx Musculoskeletal Deformity, Reports Hx Musculoskeletal Trauma Psychiatric Medical History: Reports: Hx Schizophrenia Traumatic Medical History: Reports: Hx Fractures - shoulder pain Past Surgical History: Reports: Hx Orthopedic Surgery - shoulder - Immunizations Immunizations up to date: Yes Hx Diphtheria, Pertussis, Tetanus Vaccination: Yes Physical Exam - Vital signs Vitals: Temp Pulse Resp BP Pulse Ox 98.0 F 79 18 126/87 H 97 01/02/20 11:41 01/02/20 11:41 01/02/20 11:41 01/02/20 11:41 01/02/20 11:41 Course - Vital Signs Vital signs: Temp Pulse Resp BP Pulse Ox 98.0 F 79 18 126/87 H 97 01/02/20 11:41 01/02/20 11:41 01/02/20 11:41 01/02/20 11:41 01/02/20 11:41
[2020-01-02 12:08] LABS: ABSOLUTE EOSINOPHILS # (AUTO) 0.1 10^3/uL (0.0-0.6); ABSOLUTE MONOCYTES (AUTO) 0.4 10^3/uL (0.1-1.4); EOSINOPHILS % (AUTO) 1.7 % (0-6); TOTAL CELLS COUNTED % (AUTO) 100 %
[2020-01-02 12:16] LABS: ABSOLUTE LYMPHOCYTES (AUTO) 1.6 10^3/uL (0.5-4.7); ABSOLUTE NEUT (AUTO) 2.5 10^3/uL (1.7-8.2); BASOPHILS % (AUTO) 0.8 % (0-2); HEMATOCRIT 39.9 % (37.9-51.0); HEMOGLOBIN 13.8 g/dL (13.5-17.0); LYMPHOCYTES % (AUTO) 35.4 % (13-45); MEAN CORPUSCULAR HEMOGLOBIN 29.4 pg (27.0-33.4); MEAN CORPUSCULAR HGB CONC 34.5 g/dL (32.0-36.0); MEAN CORPUSCULAR VOLUME 85 fl (80-97); MONOCYTES % (AUTO) 8.1 % (3-13); PLATELET COUNT 193 10^3/uL (150-450); RED BLOOD COUNT 4.69 10^6/uL (4.35-5.55); RED CELL DISTRIBUTION WIDTH 13.5 % (11.5-14.0); WHITE BLOOD COUNT 4.6 10^3/uL (4.0-10.5)
[2020-01-02 12:24] LABS: ALBUMIN 3.9 g/dL (3.5-5.0); ALKALINE PHOSPHATASE 50 U/L (38-126); ASPARTATE AMINO TRANSFERASE 54 U/L (17-59); BILIRUBIN,DIRECT 0.2 mg/dL (0.0-0.4); BLOOD UREA NITROGEN 12 mg/dL (7-20); CALCIUM 8.9 mg/dL (8.4-10.2); GLUCOSE 93 mg/dL (75-110); POTASSIUM 4.5 mmol/L (3.6-5.0); TOTAL PROTEIN 6.8 g/dL (6.3-8.2)
[2020-01-02 12:29] LABS: CARBON DIOXIDE 28 mmol/L (22-30); CHLORIDE 102 mmol/L (98-107)
[2020-01-02 12:31] LABS: ANION GAP 5 (5-19)
[2020-01-02] MEDS ORDERED: METOCLOPRAMIDE HCL ORAL SOLN 10 MG/10 ML UDCUP PO ONE (12:47)
[2020-01-02] MEDS ORDERED: MAG HYDROX/AL HYDROX/SIMETH SUSP 30 ML UDCUP PO ONE (12:47)
[2020-01-02] MEDS ORDERED: LIDOCAINE 2% VISCOUS SOLN 15 ML UDCUP PO ONE (12:47)
--- NOTE | 2020-01-02 13:00 | ER Document Report ---
ED GI/ - General Chief Complaint: Abdominal Pain Stated Complaint: ABDOMINAL PAIN Time Seen by Provider: 01/02/20 11:48 Notes: HPI: 39-year-old male who presents today with some intermittent epigastric not rating abdominal discomfort for around 1 month. He describes it as "sharp". No radiation to the back. Slightly worse with food. No chest pain, cough or shortness of breath. No lower abdominal pain, flank pain, dysuria, vomiting, or diarrhea. Patient was seen here for similar complaint recently with a normal CT scan of the abdomen and pelvis with a normal liver panel and lipase. ROS: See HPI All other review of systems reviewed and otherwise negative Reviewed vital signs and nursing note as charted by RN. PHYSICAL EXAM: CONSTITUTIONAL: Alert and oriented and responds appropriately to questions. Well-appearing; well-nourished HEAD: Normocephalic; atraumatic EYES: Sclerae non-icteric ENT: Normal nose; no rhinorrhea; moist mucous membranes; pharynx without lesions noted NECK: Supple without meningismus; non-tender; no cervical lymphadenopathy, no masses CARD: Regular rate and rhythm; no murmurs; symmetric distal pulses RESP: Normal chest excursion without splinting or tachypnea; breath sounds clear and equal bilaterally; no wheezes, no rhonchi, no rales ABD/GI: Normal bowel sounds; non-distended; mild tenderness to the epigastric region with no rebound or guarding. No lower abdominal tenderness. No palpable masses or abdominal bruits BACK: The back appears normal and is non-tender to palpation EXT: Normal ROM in all joints; non-tender to palpation; no edema SKIN: No acute lesions noted NEURO: CN 2-12 intact; 5/5 bilateral upper and lower extremity strength with sensation intact to light touch PSYCH: The patient's mood and manner are appropriate. Grooming and personal hygiene are appropriate. TRAVEL OUTSIDE OF THE [place] IN LAST 30 DAYS: No - Related Data Allergies/Adverse Reactions: haloperidol [From Haldol] Allergy (Verified 10/15/17 14:56) haloperidol lactate [From Haldol] Allergy (Verified 10/15/17 14:56) ibuprofen Allergy (Verified 10/15/17 14:56) Past Medical History - Social History Smoking Status: Never Smoker Frequency of alcohol use: None Drug Abuse: Marijuana Family History: Arthritis, DM - mother, Hyperlipidemia, Hypertension, Malignancy - father with colon cancer, Thyroid Disfunction - Past Medical History Cardiac Medical History: Reports: Hx Hypertension Endocrine Medical History: Reports: Hx Hypothyroidism Renal/ Medical History: Denies: Hx Peritoneal Dialysis GI Medical History: Reports: Hx Ulcer. Denies: Hx Crohn's Disease - denies, Hx Diverticulitis - denies, Hx Gastroesophageal Reflux Disease - denies Musculoskeletal Medical History: Reports Hx Arthritis, Reports Hx Musculoskeletal Deformity, Reports Hx Musculoskeletal Trauma Psychiatric Medical History: Reports: Hx Schizophrenia Traumatic Medical History: Reports: Hx Fractures - shoulder pain Past Surgical History: Reports: Hx Orthopedic Surgery - shoulder - Immunizations Immunizations up to date: Yes Hx Diphtheria, Pertussis, Tetanus Vaccination: Yes Physical Exam - Vital signs Vitals: Temp Pulse Resp BP Pulse Ox 98.0 F 79 18 126/87 H 97 01/02/20 11:41 01/02/20 11:41 01/02/20 11:41 01/02/20 11:41 01/02/20 11:41 Course - Re-evaluation Re-evalutation: Given the above history and physical, I will obtain basic labs, liver panel, lipase, and an ultrasound of the right upper quadrant. I will also obtain an EKG for cardiac equivalent pain. I do believe this is unlikely. I would like to evaluate for the possibility of pancreatitis, transaminitis, gallbladder pathology. If this is unremarkable given the recent CT scan of the abdomen and pelvis for similar pain, I will start the patient on a PPI and have the patient follow-up with gastroenterology. 01/02/20 13:00 Labs initially as recorded. 01/02/20 13:05 EKG shows heart of 59, normal sinus rhythm, normal axis, no ST elevation or depression, inverted T wave in V2 01/02/20 14:43 Patient's pain is improved with a GI cocktail. Gallbladder shows no obvious pathology. I will start the patient on Prilosec [id number] with strict return precautions and provide follow-up with gastroenterology. - Vital Signs Vital signs: Temp Pulse Resp BP Pulse Ox 98.0 F 79 18 126/87 H 97 01/02/20 11:41 01/02/20 11:41 01/02/20 11:41 01/02/20 11:41 01/02/20 11:41 - Laboratory Result Diagrams: 01/02/20 11:58 01/02/20 11:58 Laboratory results interpreted by me: 01/02/20 11:58 Sodium 135.2 L ALT 76 H Discharge - Discharge Clinical Impression: Epigastric abdominal pain Condition: Good Disposition: HOME, SELF-CARE Additional Instructions: Come back immediately for any increased pain, fever, vomiting, change in location or quality of pain, chest pain or shortness of breath, or any other acute problems. Please avoid spicy food, coffee, liquor, smoking, or any other substances that may irritate your stomach. Please follow-up with gastroenterology. Please take [id number] Prilosec once daily as discussed. Referrals: VASU PRESTON MD [ACTIVE STAFF] - Follow up as needed
--- NOTE | 2020-01-02 14:16 | RADIOLOGY REPORT (SQ) ---
EXAM DESCRIPTION: U/S ABDOMEN LIMITED W/O DOP IMAGES COMPLETED DATE/TIME: 01/02/2020 1:50 pm REASON FOR STUDY: MP; epigastric RUQ pain COMPARISON: None. TECHNIQUE: Dynamic and static grayscale images acquired of the abdomen and recorded on PACS. Additio nal selected color Doppler and spectral images recorded. LIMITATIONS: None. FINDINGS: PANCREAS: No masses. Visualized pancreatic duct normal caliber. LIVER: No masses. Echotexture normal. LIVER VASCULATURE: Normal directional flow of the main portal vein and hepatic veins. GALLBLADDER: No stones. Normal wall thickness. No pericholecystic fluid. ULTRASOUND-DETECTED IRIZARRY'S SIGN: Negative. INTRAHEPATIC DUCTS AND COMMON DUCT: CBD and intrahepatic ducts normal caliber. No filling defects. INFERIOR VENA CAVA: Normal flow. AORTA: No aneurysm. RIGHT KIDNEY: Normal size. Normal echogenicity. No solid or suspicious masses. No hydronephrosis. No calcifications. PERITONEAL AND RIGHT PLEURAL SPACE: No ascites or effusions. OTHER: No other significant findings. IMPRESSION: NORMAL RIGHT UPPER QUADRANT ULTRASOUND. TECHNICAL DOCUMENTATION: JOB ID: [id number] 2010 [employer]- All Rights Reserved Reading location - IP/workstation name: [email or web address]
[2020-01-02 15:15] VITALS: BP 125/70
[2020-01-02 15:49] LABS: CHLAM PCR NOT DETECTED (NOT DETECT)
--- NOTE | 2020-01-02 18:56 | EKG REPORT ---
SEVERITY:- NORMAL ECG - SINUS RHYTHM : Confirmed by: Angélica Pena MD 02-Jan-2020 18:56:02
== END 2020-01-02 15:13 | disposition home or self-care (01) ==
LOC: ER 11:30
DX: R10.13 Epigastric pain (principal); R10.816 Epigastric abdominal tenderness; I10 Essential (primary) hypertension; Z88.8 Allergy status to other drugs, medicaments and biological substances
CPT/HCPCS: 93005; 99285; 36415; 83690; 85025; 80053; 87491; 87591; 76705; 93010; J3490